=== PATIENT | female | born 1960 | race Caucasian/White ===

== ENCOUNTER 2016-06-30 10:15 | Inpatient (IN) | payer BC ==
[~2016-06-30] VITALS: Ht 165.1 cm; Wt 80.7 kg
[~2016-06-30 10:15] MED LIST: HYDR-3138 PO; MAGN64TA9 PO; METR500T PO
[2016-06-30] MEDS ORDERED: ALBUTEROL/IPRATROPIUM 2.5MG/0.5MG, 3 ML ONE (12:24)
[2016-06-30] MEDS ORDERED: ALBUTEROL/IPRATROPIUM 2.5MG/0.5MG, 3 ML NPPB ONE (12:30)
[2016-06-30 13:05] LABS: BLOOD UREA NITROGEN 17 mg/dL (7-18)
[2016-06-30] MEDS ORDERED: SODIUM CHLORIDE FLUSH 10ML SYR IVF ONE (14:00)
[2016-06-30] MEDS ORDERED: SODIUM CHLORIDE 0.9% 1,000ML IVBOLUS ONE ×2 (14:00→16:00)
[2016-06-30] MEDS ORDERED: OMNIPAQUE 350 MG/ML, 100ML BOTTLE ONE (14:38)
[2016-06-30] MEDS ORDERED: CEFTRIAXONE PMX 1GM/50ML 50 ML IVPB ONE (16:00)
[2016-06-30] MEDS ORDERED: AZITHROMYCIN 500 MG in SODIUM CHLORIDE 0.9% 250 ML IV ONE (16:00)
[2016-06-30] MEDS ORDERED: CEFTRIAXONE PMX 1GM/50ML 50 ML ONE (16:25)
[2016-06-30] MEDS ORDERED: SODIUM CHLORIDE FLUSH 10ML SYR IVF PRN (16:30)
[2016-06-30] MEDS: CEFTRIAXONE PMX 1GM/50ML 50 ML IV SCH (18:00)
[2016-06-30 18:44] VITALS: BP 92/60
[2016-06-30] MEDS: ENOXAPARIN 40 MG/0.4 ML SQ SCH (21:37)
[2016-06-30] MEDS: GUAIFENESIN/DM 200-20MG, 10ML UDC PO PRN (21:37)
[2016-06-30] MEDS: SODIUM CHLORIDE 0.9% 1,000 ML IV SCH (21:37)
[2016-07-01 00:29] VITALS: BP 92/60
[2016-07-01] MEDS: ACETAMINOPHEN 325 MG TABLET PO PRN ×3 (01:08→17:23)
[2016-07-01 05:25] VITALS: BP 110/71
[2016-07-01 05:35] LABS: BLOOD UREA NITROGEN 10 mg/dL (7-18)
[2016-07-01] MEDS: CEFTRIAXONE PMX 1GM/50ML 50 ML IV SCH ×2 (06:11→17:22)
[2016-07-01] MEDS: GUAIFENESIN/DM 200-20MG, 10ML UDC PO PRN ×2 (06:12→17:23)
[2016-07-01 08:00] VITALS: BP 102/70
[2016-07-01] MEDS: SODIUM CHLORIDE 0.9% 1,000 ML IV SCH (08:00)
[2016-07-01] MEDS: DOXYCYCLINE 100 MG in DEXTROSE 5% 250 ML IV SCH ×2 (09:06→20:24)
[2016-07-01 13:15] VITALS: BP 99/65
[2016-07-01] MEDS ORDERED: POLYETHYLENE GLYCOL 17 GM PACKET PO PRN (16:30)
[2016-07-01] MEDS ORDERED: DOCUSATE 100 MG CAPSULE PO PRN (16:30)
[2016-07-01] MEDS ORDERED: BISACODYL 10 MG SUPP PR PRN (16:30)
[2016-07-01 19:07] VITALS: BP 98/57
[2016-07-01] MEDS: ENOXAPARIN 40 MG/0.4 ML SQ SCH (20:24)
[2016-07-02 03:58] VITALS: BP 101/72
[2016-07-02] MEDS: CEFTRIAXONE PMX 1GM/50ML 50 ML IV SCH ×2 (04:21→17:01)
[2016-07-02 05:53] LABS: BLOOD UREA NITROGEN 8 mg/dL (7-18)
[2016-07-02 08:00] VITALS: BP 112/64
[2016-07-02] MEDS: DOXYCYCLINE 100 MG in DEXTROSE 5% 250 ML IV SCH ×2 (08:19→20:33)
[2016-07-02 13:25] VITALS: BP 104/70
[2016-07-02 18:44] VITALS: BP 105/65
[2016-07-02] MEDS: ENOXAPARIN 40 MG/0.4 ML SQ SCH (20:33)
[2016-07-03 03:20] VITALS: BP 108/67
[2016-07-03] MEDS: CEFTRIAXONE PMX 1GM/50ML 50 ML IV SCH ×2 (05:09→17:55)
[2016-07-03 07:39] VITALS: BP 104/70
[2016-07-03] MEDS: DOXYCYCLINE 100 MG in DEXTROSE 5% 250 ML IV SCH ×2 (09:56→20:47)
[2016-07-03 12:17] VITALS: BP 108/67
[2016-07-03 19:55] VITALS: BP 110/60
[2016-07-03] MEDS: ENOXAPARIN 40 MG/0.4 ML SQ SCH (20:53)
[2016-07-04 01:46] VITALS: BP 103/65
[2016-07-04] MEDS ORDERED: CEFTRIAXONE 1,000 MG in SODIUM CHLORIDE 0.9% 50 ML IVPB SCH (05:00)
[2016-07-04 06:52] LABS: ASPARTATE AMINO TRANSFERASE 20 U/L (15-37); BLOOD UREA NITROGEN 5 mg/dL (7-18)
[2016-07-04 08:00] VITALS: BP 113/69
[2016-07-04] MEDS: DOXYCYCLINE 100 MG in DEXTROSE 5% 250 ML IV SCH (08:27)
[2016-07-04] MEDS ORDERED: CEFD300C37 PO (10:25)
[2016-07-04] MEDS ORDERED: DOXY100T PO (10:25)
[2016-07-04] MEDS ORDERED: GUAI5SYR PO (10:25)
[2016-07-04] MEDS ORDERED: PNEUMOCOCCAL 23 VACCINE IM-VACC ONE (12:00)
== END 2016-07-04 13:31 | disposition home or self-care (01) | DRG 193 ==
LOC: ED 16:15 → EDIP 16:16 → ED 16:37 → 3NE 17:20
PROVIDERS: ADMIT Internal Medicine; ATTEND Internal Medicine
DX: J18.9 Pneumonia, unspecified organism (principal); J96.01 Acute respiratory failure with hypoxia; E87.1 Hypo-osmolality and hyponatremia; R73.9 Hyperglycemia, unspecified; Z87.891 Personal history of nicotine dependence; Z90.49 Acquired absence of other specified parts of digestive tract; Z90.710 Acquired absence of both cervix and uterus; Z23 Encounter for immunization
CPT/HCPCS: 36415; 71010; 71275; 80048; 80053; 80076; 82040; 83605; 84145; 85025; 87040; 87070; 87205; 90732; 93005; 94640; 96365; 96368; J0456; J0696; J1650; J7060; J7620; Q9967; J7030; J7050

== ENCOUNTER 2016-08-11 10:36 | Inpatient (IN) | payer BC ==
[~2016-08-11] VITALS: Ht 157.5 cm; Wt 93.2 kg
[~2016-08-11 10:36] MED LIST changes: +CEFD300C37 PO; +DOXY100T PO; +GUAI5SYR PO
[2016-08-11] MEDS ORDERED: SODIUM CHLORIDE 0.9% 1,000ML IVBOLUS ONE (11:30)
[2016-08-11] MEDS ORDERED: SODIUM CHLORIDE FLUSH 10ML SYR IVF ONE (11:30)
[2016-08-11] MEDS ORDERED: ONDANSETRON 2MG/ML, 2ML IVPush ONE (11:30)
[2016-08-11] MEDS ORDERED: MORPHINE SULFATE 4 MG/ML, 1ML IVPush PRN (11:30)
[2016-08-11 12:00] LABS: BLOOD UREA NITROGEN 11 mg/dL (7-18)
[2016-08-11 12:03] LABS: ASPARTATE AMINO TRANSFERASE 12 U/L (15-37)
[2016-08-11] MEDS ORDERED: ONDANSETRON 2MG/ML, 2ML ONE (12:39)
[2016-08-11] MEDS ORDERED: MORPHINE SULFATE 4 MG/ML, 1ML ONE (12:39)
[2016-08-11] MEDS ORDERED: OMNIPAQUE 350 MG/ML, 100ML BOTTLE ONE (12:43)
[2016-08-11] MEDS ORDERED: BISACODYL 10 MG SUPP PR PRN (15:00)
[2016-08-11] MEDS ORDERED: LABETALOL 5MG/ML, 20ML IVPush PRN (15:00)
[2016-08-11] MEDS ORDERED: ONDANSETRON ODT 4 MG PO PRN (15:00)
[2016-08-11] MEDS: ENOXAPARIN 40 MG/0.4 ML SQ SCH (15:00)
[2016-08-11] MEDS ORDERED: ACETAMINOPHEN 325 MG TABLET PO PRN (15:00)
[2016-08-11] MEDS ORDERED: DOCUSATE 100 MG CAPSULE PO PRN (15:00)
[2016-08-11] MEDS ORDERED: POLYETHYLENE GLYCOL 17 GM PACKET PO PRN (15:00)
[2016-08-11] MEDS ORDERED: ONDANSETRON 2MG/ML, 2ML IVPush PRN (15:00)
[2016-08-11] MEDS: SODIUM CHLORIDE 0.9% 1,000 ML IV SCH (15:10)
[2016-08-11] MEDS: METRONIDAZOLE PMX 500MG/100ML 100 ML IV SCH (15:10)
[2016-08-11] MEDS: morphine SULFATE 10 MG/ML, 1ML IVPush PRN ×2 (15:11→20:04)
[2016-08-11 15:12] VITALS: BP 120/75
[2016-08-11] MEDS: CEFTRIAXONE PMX 1GM/50ML 50 ML IV SCH (16:18)
[2016-08-11] MEDS: FAMOTIDINE 20 MG/2 ML IVPush SCH (19:26)
[2016-08-11 19:55] VITALS: BP 105/69
[2016-08-12] MEDS: METRONIDAZOLE PMX 500MG/100ML 100 ML IV SCH ×4 (00:02→22:36)
[2016-08-12] MEDS: SODIUM CHLORIDE 0.9% 1,000 ML IV SCH ×3 (00:02→22:36)
[2016-08-12 01:34] VITALS: BP 121/77
[2016-08-12] MEDS: morphine SULFATE 10 MG/ML, 1ML IVPush PRN ×6 (01:43→21:02)
[2016-08-12 06:17] LABS: ASPARTATE AMINO TRANSFERASE 104 U/L (15-37); BLOOD UREA NITROGEN 8 mg/dL (7-18)
[2016-08-12 07:55] VITALS: BP 104/71
[2016-08-12] MEDS: FAMOTIDINE 20 MG/2 ML IVPush SCH ×2 (07:57→21:02)
[2016-08-12 12:59] VITALS: BP 121/73
[2016-08-12] MEDS: CEFTRIAXONE PMX 1GM/50ML 50 ML IV SCH (16:16)
[2016-08-12] MEDS: ENOXAPARIN 40 MG/0.4 ML SQ SCH (16:16)
[2016-08-12 20:52] VITALS: BP 109/72
[2016-08-13] MEDS: morphine SULFATE 10 MG/ML, 1ML IVPush PRN ×3 (02:23→11:30)
[2016-08-13 02:34] VITALS: BP 110/79
[2016-08-13 06:29] LABS: ASPARTATE AMINO TRANSFERASE 41 U/L (15-37); BLOOD UREA NITROGEN 6 mg/dL (7-18)
[2016-08-13 06:34] VITALS: BP 108/70
[2016-08-13] MEDS: FAMOTIDINE 20 MG/2 ML IVPush SCH ×2 (08:11→20:54)
[2016-08-13] MEDS: METRONIDAZOLE PMX 500MG/100ML 100 ML IV SCH ×2 (08:11→16:24)
[2016-08-13] MEDS: SODIUM CHLORIDE 0.9% 1,000 ML IV SCH ×2 (08:11→16:23)
[2016-08-13 12:09] VITALS: BP 116/74
[2016-08-13] MEDS: LACTOBACILLUS CHEW TABLET PO SCH ×3 (13:00→20:54)
[2016-08-13] MEDS: ENOXAPARIN 40 MG/0.4 ML SQ SCH (15:00)
[2016-08-13] MEDS: CEFTRIAXONE PMX 1GM/50ML 50 ML IV SCH (16:23)
[2016-08-13] MEDS: OXYcodone IR 5MG TABLET PO PRN (18:13)
[2016-08-13 19:24] VITALS: BP 121/78
[2016-08-14] MEDS: SODIUM CHLORIDE 0.9% 1,000 ML IV SCH ×2 (00:01→16:00)
[2016-08-14] MEDS: METRONIDAZOLE PMX 500MG/100ML 100 ML IV SCH ×4 (00:01→23:57)
[2016-08-14] MEDS: OXYcodone IR 5MG TABLET PO PRN ×4 (00:15→21:52)
[2016-08-14 03:07] VITALS: BP 113/72
[2016-08-14 06:35] VITALS: BP 111/72
[2016-08-14] MEDS: FAMOTIDINE 20 MG/2 ML IVPush SCH ×2 (07:46→21:52)
[2016-08-14] MEDS: LACTOBACILLUS CHEW TABLET PO SCH ×3 (07:46→21:52)
[2016-08-14 12:35] VITALS: BP 113/73
[2016-08-14] MEDS: ENOXAPARIN 40 MG/0.4 ML SQ SCH (15:00)
[2016-08-14] MEDS: CEFTRIAXONE PMX 1GM/50ML 50 ML IV SCH (16:00)
[2016-08-14 18:45] VITALS: BP 113/72
[2016-08-15 01:31] VITALS: BP_SYST 116; BP_SYST 16; BP_DIAS 75
[2016-08-15] MEDS: morphine SULFATE 10 MG/ML, 1ML IVPush PRN (01:44)
[2016-08-15 05:46] LABS: BLOOD UREA NITROGEN 5 mg/dL (7-18)
[2016-08-15 05:50] LABS: ASPARTATE AMINO TRANSFERASE 28 U/L (15-37)
[2016-08-15] MEDS: OXYcodone IR 5MG TABLET PO PRN ×2 (06:03→13:34)
[2016-08-15 06:25] VITALS: BP 129/73
[2016-08-15] MEDS: METRONIDAZOLE PMX 500MG/100ML 100 ML IV SCH ×2 (08:39→16:49)
[2016-08-15] MEDS: FAMOTIDINE 20 MG/2 ML IVPush SCH (08:39)
[2016-08-15] MEDS: LACTOBACILLUS CHEW TABLET PO SCH ×2 (08:39→16:50)
[2016-08-15 12:40] VITALS: BP 118/73
[2016-08-15] MEDS: SODIUM CHLORIDE 0.9% 1,000 ML IV SCH (13:34)
[2016-08-15] MEDS: ENOXAPARIN 40 MG/0.4 ML SQ SCH (16:50)
[2016-08-15] MEDS ORDERED: CEFD300C37 PO (18:04)
[2016-08-15] MEDS ORDERED: METR500T PO (18:04)
[2016-08-15] MEDS ORDERED: ACID1TAB7 PO (18:04)
[2016-08-15] MEDS ORDERED: OXYC5TAB3 PO (18:04)
== END 2016-08-15 18:48 | disposition home or self-care (01) | DRG 392 ==
LOC: ED 11:07 → EDIP 13:25 → 3NE 14:13
PROVIDERS: ADMIT Internal Medicine; ATTEND Internal Medicine
DX: A09 Infectious gastroenteritis and colitis, unspecified (principal); E44.1 Mild protein-calorie malnutrition; Z87.891 Personal history of nicotine dependence; E66.9 Obesity, unspecified; Z68.30 Body mass index [BMI] 30.0-30.9, adult; R73.9 Hyperglycemia, unspecified; Z90.49 Acquired absence of other specified parts of digestive tract; Z90.710 Acquired absence of both cervix and uterus; Z79.899 Other long term (current) drug therapy; Z82.49 Family history of ischemic heart disease and other diseases of the circulatory system; Z80.9 Family history of malignant neoplasm, unspecified; Z87.01 Personal history of pneumonia (recurrent)
CPT/HCPCS: 36415; 74000; 74177; 80053; 81003; 83605; 83690; 83735; 84100; 85025; 87046; 87324; 87899; 89055; 96361; 96374; 96375; J0696; J1650; J2405; Q9967; J2270; J7030; S0028